=== PATIENT | male | born 1955 | race African-American/Black ===

== ENCOUNTER → 2024-02-15 | Emergency (ER) | payer MEDICARE, OTHER ==
[~2024-02-15] MED LIST: Orphenadrine Citrate 100 MG ER.TAB ONE
== END ==
LOC: ERS 18:28
DX: S46.911A Strain of unspecified muscle, fascia and tendon at shoulder and upper arm level, right arm, initial encounter (principal); M25.561 Pain in right knee; M54.6 Pain in thoracic spine; V43.52XA Car driver injured in collision with other type car in traffic accident, initial encounter; E11.9 Type 2 diabetes mellitus without complications
CPT/HCPCS: 70450; 71045; 72070; 72125